=== PATIENT | female | born 1945 | race Caucasian/White ===

== ENCOUNTER → 2016-09-15 18:43 | Outpatient (CLI) | payer MEDICARE, OTHER ==
[2016-03-12 09:46] VITALS: BMI 22.8
[~2016-09-15 18:43] MED LIST: CARAFATE1 G/10 ML PO; COLACE100 MG PO; DULCOLAX10 MG/SUPP RC; ELIQUIS2.5 MG PO; HUMALOG 30100 UNITS/ SC; HUMULIN N100 U/ML SC; HUMULIN N100 U/ML SQ; HUMULIN R100 U/ML SC; HUMULIN R100 U/ML SQ; HYDROCODON-ACE1 EAC7 PO; HYDROCODONE-APA1 TAB PO; INSTA-GLUCOSE31 GM PO; LOVENOX40 MG/0.4 SC; METAMUCIL FIB1 WAFER PO; MIRALAX17 GM PO; NORCO 10/325 TA1 TA1 PO; PHENERGAN25 M1 PO; PROTONIX40 MG PO; REGLAN10 MG PO; TEFLARO600 MG IV; TYLENOL 325 MG325 MG PO; TYLENOL650 MG RC; ZOFRAN4 MG PO
== END | disposition home or self-care (01) ==
LOC: D.LABREF 18:43
DX: M25.552 Pain in left hip (principal); Z11.8 Encounter for screening for other infectious and parasitic diseases

== ENCOUNTER 2016-09-27 06:57 | Inpatient (IN) | payer MEDICARE, OTHER ==
[2016-09-23 15:30] LABS: BASOPHILS 0.6 % (0.0-2.0); EOSINOPHILS 1.9 % (0-7); HEMATOCRIT 33.3 % (36.0-48.0); HEMOGLOBIN 10.8 g/dL (12-16); IMMATURE GRANULOCYTES 0.2 % (0-5); MCHC 32.4 g/dL (31.0-37.0); MCV 89.5 fL (80.0-100.0); MONOCYTES 6.9 % (2-11); NEUTROPHILS 53.4 % (40-80); RBC 3.72 10x6/uL (4.00-5.40); RDW 14.2 % (11.5-14.5); WBC 6.5 10x3/uL (4.8-10.8)
[2016-09-23 15:35] LABS: PLATELET COUNT 279 10x3/uL (130-400)
[2016-09-23 15:39] LABS: ANION GAP 14.8 mmol/L (8-16); CALCIUM 9.2 mg/dL (8.5-10.1); CARBON DIOXIDE 26.4 mmol/L (21.0-32.0); CREATININE - SERUM 1.2 mg/dL (0.6-1.3); POTASSIUM - SERUM 5.2 mmol/L (3.5-5.1)
[2016-09-23 15:40] LABS: INR 0.9 (0.85-1.17)
[2016-09-23 15:41] LABS: APTT 25.8 SECONDS (22.8-39.4)
[2016-09-23 16:15] LABS: APPEARANCE CLEAR (CLEAR); BILIRUBIN NEGATIVE (NEGATIVE); COLOR YELLOW (YELLOW); KETONE NEGATIVE (NEGATIVE); LEUKOCYTE ESTERASE TRACE (NEGATIVE); NITRITE NEGATIVE (NEGATIVE); PH 5.5 (5.0-6.0); PROTEIN NEGATIVE (NEGATIVE)
[2016-09-23 16:16] LABS: GLUCOSE 100 mg/dL (NEGATIVE); UROBILINOGEN NORMAL (NORMAL)
[2016-09-23 16:17] LABS: BACTERIA FEW /hpf (NONE SEEN); EPITHELIAL CELLS 0-5 /hpf (0-5); WHITE CELLS - URINE OCC /hpf (0-5)
[~2016-09-27] VITALS: Ht 167.6 cm; Wt 55.5 kg
[2016-09-27] VITALS (9 sets, daily range): BP systolic 105–124; BP diastolic 49–60; Ht 167.6 cm; Wt 55.5 kg
[~2016-09-27 06:57] MED LIST changes: -ELIQUIS2.5 MG PO
--- NOTE | 2016-09-27 11:37 | NUR ---
[address] MANZANARES GLUCOSE 332 ORDERS RECEIVED.
--- NOTE | 2016-09-27 11:40 | NUR ---
1137 REPORTED TO DIOMEDES NEEDS 5 UNITS OF REGULAR INSULIN NOT IN OUR PYSIS.
--- NOTE | 2016-09-27 13:04 | NUR ---
PT'S FAMILY TALKED TO AT LENGTH REGARDING DELAY PER D.TERRELL JESUS
--- NOTE | 2016-09-27 13:08 | NUR ---
PT'S HIP AND LEG WASHED WITH HIBICLENS AND ALCOHOL PER CYNTHIA PRIOR TO CHLORPREP
--- NOTE | 2016-09-27 13:30 | NUR ---
PT'S BLOOD SUGAR TESTED AT 1322 PER DN, RESULTS 316. 10 UNITS OF HUMULIN-R INSULIN GIVEN IM IN RIGHT UPPER ARM PER D.TERRELL JESUS, V.O. DR. AGUIRRE
--- NOTE | 2016-09-27 14:09 | NUR ---
1409: Cori DRAWN, 310. REPORTED TO ELIEL MOSQUERA
[2016-09-27 16:51] LABS: BASOPHILS 0.3 % (0.0-2.0); EOSINOPHILS 0.3 % (0-7); HEMATOCRIT 23.5 % (36.0-48.0); HEMOGLOBIN 7.8 g/dL (12-16); IMMATURE GRANULOCYTES 0.2 % (0-5); LYMPHOCYTES 21.5 % (15-50); MCH 29.3 pg (26.0-34.0); MCHC 33.2 g/dL (31.0-37.0); MCV 88.3 fL (80.0-100.0); MEAN PLATELET VOLUME 9.4 fL (7.4-10.4); MONOCYTES 6.8 % (2-11); NEUTROPHILS 70.9 % (40-80); RBC 2.66 10x6/uL (4.00-5.40); RDW 14.1 % (11.5-14.5); WBC 6.3 10x3/uL (4.8-10.8)
[2016-09-27 16:52] LABS: PLATELET COUNT 205 10x3/uL (130-400)
--- NOTE | 2016-09-27 17:28 | NUR ---
DR WHITE ORDERED 2 UNITS OF BLOOD TO START IN PACU. PATIENT IN PACU AT THIS TIME. CALL PLACED TO LAB, ONLY ONE PERSON IN LAB CANNOT BRING BLOOD TO PACU, I CANNOT LEAVE PT TO GET BLOOD.
--- NOTE | 2016-09-27 17:54 | NUR ---
BLOOD STARTED AT 1745
--- NOTE | 2016-09-27 19:25 | NUR ---
RECIEVED SHIFT REPORT. PT IS LYING IN BED. ALERT AND ORIENTED AND ABLE TO VERBALIZE NEEDS. IV IS PATENT AND BLOOD RUNNING PER ORDER. SCD'S ON. DRESSING TO LEFT HIP C/D/I. PT STATES PAIN IS 9/10. PT IS ABLE TO ASSIST IN TURNING FOR COMFORT AND SKIN CARE. O2 @ 2 PER NASAL CANNULA. NO NEEDS ARE VERBALIZED AT THIS TIME. WILL CONTINUE TO MONITOR. SIDE RAILS ARE UP X 2. BED IS IN LOWEST POSITION. BED ALARM IS ON FOR SAFETY. CALL LIGHT IS WITHIN REACH.
--- NOTE | 2016-09-27 20:21 | NUR ---
SHIFT ASSESSMENT COMPLETED. NIGHT MEDS GIVEN WITH NO PROBLEMS. PT C/O PAIN 03/20. ADMINISTERED PRESCRIBED PRN PERCOCET PER ORDER. DENIES FURTHER NEEDS. WILL MONITOR. SIDE RAILS X 2. BED LOW. BED ALARM ON. CALL LIGHT IN REACH.
--- NOTE | 2016-09-27 23:25 | NUR ---
PRBC'S INITIATED AT THIS TIME. VSS. WILL MONITOR. SIDE RAILS X 2. BED LOW. BED ALARM ON. CALL LIGHT IN REACH.
--- NOTE | 2016-09-27 23:40 | NUR ---
PT W/O REACTION AT THIS TIME. VSS. WILL MONITOR. SIDE RAILS X 2. BED LOW. BED ALARM ON. CALL LIGHT IN REACH.
--- NOTE | 2016-09-28 01:30 | NUR ---
PRBC'S FINISHED AT THIS TIME AND LINE INFUSING. PT REMAINED W/O REACTION. VSS. WILL MONITOR. SIDE RAILS X 2. BED LOW. BED ALARM ON. CALL LIGHT IN REACH.
[2016-09-28 04:00] VITALS: BP 138/49
[2016-09-28 05:37] LABS: MCH 28.9 pg (26.0-34.0); MCV 90.1 fL (80.0-100.0); MEAN PLATELET VOLUME 10.2 fL (7.4-10.4); RDW 15.2 % (11.5-14.5); WBC 6.6 10x3/uL (4.8-10.8)
[2016-09-28 05:41] LABS: HEMATOCRIT 33.7 % (36.0-48.0); HEMOGLOBIN 10.8 g/dL (12-16); RBC 3.74 10x6/uL (4.00-5.40)
[2016-09-28 08:38] VITALS: BP 141/55
[2016-09-28 13:04] VITALS: BP 113/42
--- NOTE | 2016-09-28 14:35 | NUR ---
PATIENT ITCHING,NO RASH. TURNED OFF THE VANCOMYCIN AND CALLED . HE SAID TO GIVE 50MG OF BENADRYL IV AND CONTINUE THE VANCOMYCIN.
--- NOTE | 2016-09-28 16:00 | NUR ---
PATIENT HAS NOT VOIDED THIS SHIFT. ASSISTED PATIENT ONTO BEDPAN. PATIENT SAT ON BEDPAN FOR 5 MINS. PATIENT VERBALIZED SHE HAS URINATED ALL SHE IS ABLE TOO. TOOK PATIENT OFF OF BEDPAN. ONLY 10ML OF URINE. DID A BLADDER SCAN IT SHOWED 853ML. TRIED TO DO AND IN AND OUT CATH, UNSUCCESSFUL. ASKED EDIN DRISCOLL FOR ASSISTANCE. SHE OBTAINED A NEW STERILE IN AND OUT CATH KIT. SHE DID AN IN AND OUT CATH. MAINTAINED STERILE TECHNIQUE. 1200ML OF CLEAR URINE OUT.
--- NOTE | 2016-09-28 16:39 | NUR ---
* Is the patient Alert and Oriented? Yes 0 * How many steps to enter\exit or inside your home? Ramp 0 * PCP Dr. Roa 0 * Pharmacy [facility] * Preadmission Environment Home Alone 0 * ADLs Independent 0 * Equipment Bedside Commode Cane Rolling Walker Shower Chair Wheelchair 0 * List name and contact numbers for known caregivers / representatives who currently or will assist patient after discharge: Friend - Clementina Jacobo [phone] * Additional services required to return to the preadmission environment? Yes 0 * Can the patient safely return to the preadmission environment? Yes 0 * Has this patient been hospitalized within the prior 30 days at any hospital? No 09/28/2016 16:41 DCP: Discharge Planning Patient Name: KLAUDIA KAUR Admission Status: Elective Accout number: [id number] Admission Date: 09-27-2016 : 1945 Admission Diagnosis: Attending: ARMANDO Current LOS: 1 Anticipated DC Date: 09-28-2016 Planned Disposition: Home with Home Health Primary Insurance: MEDICARE A & B Discharge Planning Comments: CM met with patient to assess dc plans/needs. Patient states she lives alone was independent with all ADL's and IADL's prior to hospitalization. She has a walker, cane, WC, BSC, & SC at home. At dc, she states her cousin will be coming to stay with her while she recovers. She has used [facility] in the past and plans to use them at discharge for physical therapy - she will be non weight bearing. COLIN signed. Initial referral faxed and called to Ryann with [facility]. CM will follow. Credit Rating Checker: Lida Paige
[2016-09-28 17:07] VITALS: BP 106/59
--- NOTE | 2016-09-28 19:20 | NUR ---
RECIEVED SHIFT REPORT. PT IS LYING IN BED. ALERT AND ORIENTED AND ABLE TO VERBALIZE NEEDS. IV IS PATENT AND SALINE LOC AT THIS TIME. SCD'S ON. DRESSING TO LEFT HIP C/D/I. PT IS AMBULATORY WITH ASSISTANCE. PT STATES PAIN IS 1/10. NO NEEDS ARE VERBALIZED AT THIS TIME. WILL CONTINUE TO MONITOR. SIDE RAILS ARE UP X 2. BED IS IN LOWEST POSITION. BED ALARM IS ON FOR SAFETY. CALL LIGHT IS WITHIN REACH.
[2016-09-28 20:00] VITALS: BP 111/42
--- NOTE | 2016-09-28 20:26 | NUR ---
SHIFT ASSESSMENT COMPLETED. NIGHT MEDS GIVEN WITH NO PROBLEMS. NO NEEDS ARE VOICED. WILL MONITOR. SIDE RAILS X 2. BED LOW. BED ALARM ON. CALL LIGHT IN REACH.
[2016-09-29] VITALS: BP 120/55
[2016-09-29 04:00] VITALS: BP 104/55
[2016-09-29 05:48] LABS: HEMATOCRIT 27.5 % (36.0-48.0); HEMOGLOBIN 9.1 g/dL (12-16); MCHC 33.1 g/dL (31.0-37.0); MEAN PLATELET VOLUME 10.2 fL (7.4-10.4); RBC 3.14 10x6/uL (4.00-5.40); RDW 15.3 % (11.5-14.5)
[2016-09-29 05:49] LABS: MCV 87.6 fL (80.0-100.0)
--- NOTE | 2016-09-29 07:10 | NUR ---
PATIENT RECEIVED ALERT IN HIGH BRIDGES POSITION. RESPIRATIONS EVEN AND UNLABORED. SIDE RAILS UP X2. BED IN LOW POSITION. CALL LIGHT IN REACH. DENIES NEEDS. BED ALARM ON.
--- NOTE | 2016-09-29 08:17 | NUR ---
ALERT IN BED EATING BREAKFAST. TOLERATING WELL. SCHEDULED MEDICATION ADMINISTERED WELL PRN NORCO. DENIES NEEDS. SIDE RAILS UP X2. BED IN LOW POSITION. CALL LIGHT IN REACH.
[2016-09-29 08:40] VITALS: BP 130/46
--- NOTE | 2016-09-29 12:25 | NUR ---
PATIENT SITTING UP IN CHAIR AT BEDSIDE. RESPIRATIONS EVEN AND UNLABORED. DENIES NEEDS. CALL LIGHT IN REACH.
[2016-09-29 12:43] VITALS: BP 128/52
--- NOTE | 2016-09-29 14:49 | NUR ---
SITTING UP IN CHAIR ALERT. NO SIGNS OF DISTRESS NOTED. DENIES PAIN AND OTHER NEEDS. CALL LIGHT IN REACH.
[2016-09-29 16:26] VITALS: BP 140/53
--- NOTE | 2016-09-29 17:04 | NUR ---
ALERT IN BED. C/O PAIN 01/17. NORCO ADMINISTERED PER PRN ORDER. PATIENT REPOSITIONED FOR COMFORT. PILLOW PLACED BENEATH LEFT SIDE. ICE PACK IN PLACE. SCDS ON BILATERALLY. DENIES FURTHER NEEDS. SIDE RAILS UP X2. BED IN LOW POSITION. CALL LIGHT IN REACH. BED ALARM ON
[2016-09-29 19:00] VITALS: BP 115/41
--- NOTE | 2016-09-29 19:00 | NUR ---
PATIENT ON RIGHT SIDE. HOB 20 DEGREES. RESTING WITH EYES CLOSED BUT AROUSES TO VOICE. RR EVEN AND UNLABORED. 0 S/S OF DISTRESS. DENIES PAIN AT THIS TIME. IV TO LEFT FA S/L WITH NO REDNESS OR SWELLING. DRESSING TO LEFT HIP CDI. SCD'S ON. B/A ON. SRX2. BED LOW. CALL LIGHT WITHIN REACH.
--- NOTE | 2016-09-29 22:00 | NUR ---
ASSISTED PATIENT TO USE BEDPAN. ASSESSMENT COMPLETE. NIGHTTME MEDS GIVEN. PULLED NORCO BUT PATIENT DOES NOT WANT IT AT THIS TIME. WILL RETURN. ATTEMPTED TO CONVINCE PATIENT TO TURN OFF OF HER RIGHT SIDE, BUT SHE REFUSES. NO OTHER NEEDS AT THIS TIME.
--- NOTE | 2016-09-30 00:05 | NUR ---
NORCO GIVEN FOR PAIN. WILL REASSESS.
--- NOTE | 2016-09-30 03:37 | NUR ---
PATIENT SLEEPING WITH NO DISTRESS NOTED. CALL LIGHT WITHIN REACH.
[2016-09-30 04:00] VITALS: BP 135/59
--- NOTE | 2016-09-30 07:35 | NUR ---
PATIENT RECEIVED ALERT IN HIGH BRIDGES POSITION. RESPIRATIONS EVEN AND UNLABORED. DENIES NEEDS. SIDE RAILS UP X2. BED IN LOW POSITION. CALL LIGHT IN REACH. BED ALARM ON.
[2016-09-30 08:32] VITALS: BP 144/72
--- NOTE | 2016-09-30 08:35 | NUR ---
PATIENT REPOSITIONED IN BED. WELL TOLERATED. SCHEDULED MEDICATION ADMINISTERED WELL PRN NORCO. DENIES NEEDS. SIDE RAILS UP X2. BED IN LOW POSITION. CALL LIGHT IN REACH.
--- NOTE | 2016-09-30 11:30 | NUR ---
PATIENT SITTING UP IN CHAIR RESTING WITH EYES CLOSED. RESPIRATIONS EVEN AND UNLABORED. CALL LIGHT IN REACH.
[2016-09-30 11:42] VITALS: BP 112/47
--- NOTE | 2016-09-30 13:20 | NUR ---
SITTING UP IN CHAIR WITH GUEST PRESENT. NORCO PER PRN ORDER. NO FURTHER NEEDS VOICED. CALL LIGHT IN REACH.
[2016-09-30 15:15] VITALS: BP 116/68
--- NOTE | 2016-09-30 16:30 | NUR ---
SITTING UP IN CHAIR AT BEDSIDE. NO SIGNS OF DISTRESS NOTED. CALL LIGHT IN REACH.
--- NOTE | 2016-09-30 17:45 | NUR ---
ALERT IN BED. CHICKEN NOODLE SOUP PROVIDED PER REQUEST. NO FURTHER NEEDS VOICED. SIDE RAILS UP X2. BED IN LOW POSITION. CALL LIGHT IN REACH.
--- NOTE | 2016-09-30 19:00 | NUR ---
PATIENT IN BED WATCHING TV. HOB 30 DEGREES. AAOX4. RR EVEN AND UNLABORED. 0 S/S OF DISTRESS. DENIES PAIN AT THIS TIME. IV TO LEFT FA PATENT WITH NO REDNESS OR SWELLING. DRESSING TO LEFT HIP CDI. SCD'S ON. B/A ON. SRX2. BED LOW. CALL LIGHT WITHIN REACH.
[2016-09-30 22:56] VITALS: BP 144/59
[2016-09-30 23:00] VITALS: BP 114/54
--- NOTE | 2016-09-30 23:05 | NUR ---
ASSESSMENT COMPLETE. NIGHTTIME MEDS GIVEN. NORCO GIVEN FOR PAIN OF A 2/10. WILL REASSESS. NO OTHER NEEDS AT THIS TIME.
--- NOTE | 2016-10-01 04:00 | NUR ---
PATIENT SLEEPING WITH NO DISTRESS NOTED. CALL LIGHT WITHIN REACH.
[2016-10-01 06:29] LABS: HEMATOCRIT 27.2 % (36.0-48.0); HEMOGLOBIN 8.9 g/dL (12-16); MCH 28.8 pg (26.0-34.0); MCHC 32.7 g/dL (31.0-37.0); MEAN PLATELET VOLUME 9.8 fL (7.4-10.4); RBC 3.09 10x6/uL (4.00-5.40); RDW 15.2 % (11.5-14.5); WBC 6.4 10x3/uL (4.8-10.8)
[2016-10-01 06:46] LABS: CALCIUM 8.9 mg/dL (8.5-10.1); CARBON DIOXIDE 23.6 mmol/L (21.0-32.0); CREATININE - SERUM 1.2 mg/dL (0.6-1.3); POTASSIUM - SERUM 4.6 mmol/L (3.5-5.1)
--- NOTE | 2016-10-01 07:30 | NUR ---
PT AWAKE AND ALERT ORINETD X 3 NOTED TO HAVE ELEVATED TEMP THIS AM 100.1 LUNGS CLAER BIALTERALLY BSA X 4 QUADS. DRESSING TO L HIP CLEAN DRY AND INTACT. CALL LIGHT IN REACH SIDE RAILS UP X 2
[2016-10-01 07:38] VITALS: BP 124/54
--- NOTE | 2016-10-01 08:55 | NUR ---
WITHOUT DISTRESS.DENIES NEEDS.CALL LIGHT IN REACH
[2016-10-01] MEDS ORDERED: HYDROCODON-ACE1 EAC7 PO (09:42)
[2016-10-01] MEDS ORDERED: ELIQUIS2.5 MG PO (09:42)
[2016-10-01 11:18] VITALS: BP 111/45
--- NOTE | 2016-10-01 17:09 | NUR ---
pt dressing changed per order transfered to wheelchair per PT transfered to private car. discharge instructions given to pt expressed understanding. piv discontinued per order
--- NOTE | 2016-10-14 14:26 | OP ---
PATIENT NAME: KLAUDIA KAUR MEDICAL RECORD: [id number] :45 LOCATION:[id number] ADMISSION DATE:09/27/16 SURGEON: JANIS WHITE MD DATE OF OPERATION: 09/27/2016 PREOPERATIVE DIAGNOSIS: Nonunion of intertrochanteric hip fracture, status post gamma nailing. POSTOPERATIVE DIAGNOSIS: Nonunion of intertrochanteric hip fracture, status post gamma nailing. PROCEDURES: 1. Removal of gamma nail. 2. Total hip arthroplasty using revision system. SURGEON: Janis White MD. ANESTHESIA: General. INTRAOPERATIVE COMPLICATIONS: None. SUMMARY OF PATHOLOGIC FINDINGS: The patient's intertrochanteric fracture had failed to heal and began to have superior screw migration to the subcortical surface, but not into the acetabular surface. This required removal and revision system for total hip arthroplasty. OPERATIVE SUMMARY IN DETAIL: After obtaining the appropriate preoperative orthopedic surgery consent as well as anesthetic consultation, evaluation and clearance, the patient was taken to the operating room and placed on the operating table in supine position. After adequate general laryngeal mask was administered, the patient was placed in a right lateral decubitus position. All pressure points were well padded to include down leg peroneal pad as well as axillary roll. The patient was held firmly to the operating table using the vacuum pack suction system. Left lower extremity and hip were then prepped and draped in routine sterile fashion. Curvilinear incision was made, taken down to the level of the IT band which was split in line with fibers of the IT band to reveal the gluteus medius and minimus. This was elongated distally and then the compression screw and the gamma nail was identified as was the superior aspect of the gamma nail. Derotational screw was then removed followed by removal of the compression screw. At this point, the distal interlocking screw was removed as well and the gamma nail was pulled out. Dissection was then carried further about the proximal aspect of the hip. Gluteus medius and minimus were detached and reflected anteriorly. There was somewhat substantially altered anatomy at this point; however, the femoral neck cut was made and then the femoral head was taken out in pieces revealing the patient's acetabulum. Acetabulum was very thin posteriorly; however, serial and sequential reaming were done. The hip was then put into place with fair capture, it was also augmented with screws. Polyethylene was then put into place. Attention was turned to the proximal femur. Serial and sequential reaming was done for the distal stem of the mandaen modular set. The distal stem was set into place and then trials were undertaken for the appropriate proximal body. A 21 standard was utilized with a +10 femoral head. This reduced nicely, it was put into place, taken through a range of motion and found to be stable in all planes. Gluteus medius and minimus were then reapproximated in a transosseous fashion back to the greater trochanter. Having completed this, the IT band was closed with #2 OPERATIVE REPORT [id number] KLAUDIA KAUR followed by #1 Vicryl, 2-0 Vicryl and skin kalyan. Sterile dressings were applied. Please note that intraoperative radiographs were taken that showed good position and placement of the components. The patient was awakened and taken to recovery room in stable condition. All final needle and sponge counts were correct. TRANSINT:[id number] Voice Confirmation ID: [id number] DOCUMENT ID: [id number] CINDY ARAIZA, JANIS KAUR at 1426 CC: [id number] DICTATION DATE: 10/14/16 1053 LEASE PURCHASE TRUCK DRIVER: 10/14/16 1232 DIS IN 10/01/16 [id number] [place] [address]
== END 2016-10-01 17:10 | disposition home health service (06) | DRG 467 ==
LOC: D.MS 06:57 → D.SDCHOLD 06:57 → D.MS 15:00
PROVIDERS: ADMIT Orthopaedic Surgery
PROC: 0SUS09Z Supplement Left Hip Joint, Femoral Surface with Liner, Open Approach (ICD-10-PCS; 2016-09-27)
PROC: 0SPS0JZ Removal of Synthetic Substitute from Left Hip Joint, Femoral Surface, Open Approach (ICD-10-PCS; 2016-09-27)
PROC: 0YPB0YZ Removal of Other Device from Left Lower Extremity, Open Approach (ICD-10-PCS; 2016-09-27)
PROC: 0SRS0JZ Replacement of Left Hip Joint, Femoral Surface with Synthetic Substitute, Open Approach (ICD-10-PCS; principal; 2016-09-27 10:30)
PROC: 0SPB09Z Removal of Liner from Left Hip Joint, Open Approach (ICD-10-PCS; 2016-09-27 10:30)
DX: T84.119A Breakdown (mechanical) of internal fixation device of unspecified bone of limb, initial encounter (principal); D62 Acute posthemorrhagic anemia; T84.9XXA Unspecified complication of internal orthopedic prosthetic device, implant and graft, initial encounter; Z96.642 Presence of left artificial hip joint; E11.9 Type 2 diabetes mellitus without complications; Z79.4 Long term (current) use of insulin; Z87.891 Personal history of nicotine dependence